=== PATIENT | female | born 1970 | race Caucasian/White ===

== ENCOUNTER 2024-07-24 10:37 | Outpatient (CLI) | payer BC, SELFPAY ==
--- NOTE | ~2024-07-24 | XR_ITS ---
EXAMINATION: XR lumbar spine min 4V DATE: 07/24/2024 11:25 INDICATION: Spondylosis without myelopathy. Low back pain radiating to the left hip. TECHNIQUE: 5 views of lumbar spine including standing views and flexion and extension views were obta ined. COMPARISON: Lumbar spine MRI 07/24/2024 FINDINGS: There is 7 degrees levocurvature of lumbar spine. Vertebral body heights are normal. There is mildly decreased disc height at L4-L5. There is no abnormal motion with flexion or extension. Ther e is multilevel facet joint osteoarthritis, severe in lower lumbar spine. IMPRESSION: 1. Mild lumbar spondylosis. Reviewed, dictated and finalized at location A. MICROARCHITECT IMPRESSION: 1. Mild lumbar spondylosis.
--- NOTE | ~2024-07-24 | MR_ITS ---
EXAMINATION: MR lumbar spine wo con DATE: 07/24/2024 11:16 INDICATION: Lumbar spondylosis without myelopathy. TECHNIQUE: Magnetic resonance imaging (MRI) of the lumbar spine was performed without intravenous con trast. Sequences included sagittal T2-weighted FSE, sagittal T2-weighted FS FSE, sagittal T1-weighted FSE, and axial T2-weighted FSE. COMPARISON: Lumbar spine radiographs 07/24/2024 FINDINGS: There is 9 degrees levocurvature of lumbar spine. Alignment is normal. There is mildly decr eased disc height at L4-L5. The distal spinal cord signal intensity is normal. The conus medullaris i s at T12. The following disc levels are specifically discussed: L1-L2: The disc does not extend beyond the endplate margin. There is mild bilateral facet joint osteo arthritis. There is no neural foraminal stenosis. There is no central canal stenosis. L2-L3: The disc is bulging. There is severe right and mild left facet joint osteoarthritis. There is mild bilateral neural foraminal stenosis. There is mild central canal stenosis. L3-L4: The disc is bulging. There is severe bilateral facet joint osteoarthritis. There is mild bilat eral neural foraminal stenosis. There is mild central canal stenosis. L4-L5: The disc is bulging and has an annular fissure. There is severe bilateral facet joint osteoart hritis. There is mild bilateral neural foraminal stenosis. There is mild central canal stenosis. L5-S1: The disc does not extend beyond the endplate margin. There is severe bilateral facet joint ost eoarthritis. There is no neural foraminal stenosis. There is no central canal stenosis. IMPRESSION: 1. Mild lumbar spondylosis. Reviewed, dictated and finalized at location A. MACHINE OPERATOR IMPRESSION: 1. Mild lumbar spondylosis.
--- NOTE | ~2024-07-24 | XR_ITS ---
EXAM: XR pelvis 1-2V DATE: 07/24/2024 11:25 HISTORY: Spondylosis without myelopathy, . COMPARISON: 10/24/2004. FINDINGS: Decreased mineralization. No fracture or dislocation. Degenerative changes in the lumbar s pine and bilateral hips. No lytic or blastic lesion. Mild degenerative change of the pubic symphysis. IMPRESSION: Mild bilateral hip osteoarthritis. Mild osteitis pubis Reviewed, dictated and finalized at location K. ING STATION ATTENDANT
== END 2024-07-24 10:38 | disposition home or self-care (01) ==
DX: M47.817 Spondylosis without myelopathy or radiculopathy, lumbosacral region (principal); M53.3 Sacrococcygeal disorders, not elsewhere classified; M79.7 Fibromyalgia; M17.0 Bilateral primary osteoarthritis of knee; M47.26 Other spondylosis with radiculopathy, lumbar region
CPT/HCPCS: 72110; 72148; 72170

== ENCOUNTER 2024-09-05 15:26 | Outpatient (CLI) | payer BC, SELFPAY ==
--- NOTE | ~2024-09-05 | MR_ITS ---
EXAMINATION: MR hip LT wo con DATE: 09/05/2024 16:09 INDICATION: Trochanteric bursitis of left hip. TECHNIQUE: Magnetic resonance imaging (MRI) of the left hip was performed without intravenous contras t. COMPARISON: Pelvis radiograph 07/24/2024 FINDINGS: Bones/cartilage: Bone alignment is normal. No fracture. The femoral head/neck morphologies are normal. The hips demons trate tiny osteophytes. Small [id number] images of left hip demonstrate normal cartilage. Labrum: There is a tear of the left acetabular labrum. Fluid: There is no hip joint effusion. There is mild bilateral trochanter bursitis. Soft tissues: The gluteus minimus tendons and left gluteus medius tendon are normal. There is mild right gluteus me dius tendinopathy. The iliopsoas tendons are normal. There is moderate tendinopathy of the hamstring origins bilaterally. There is a left inguinal hernia containing fat. There is a 5.3 cm subserosal fib roid. IMPRESSION: 1. Mild bilateral trochanter bursitis. 2. Tear of left acetabular labrum. 3. Left inguinal hernia containing fat. 4. Uterine fibroid. Reviewed, dictated and finalized at location A. CTOR OF LABORATORY OPERATIONS
== END 2024-09-05 15:27 | disposition home or self-care (01) ==
LOC: MICIMG 15:28
PROVIDERS: PCP Chiropractor
DX: M70.62 Trochanteric bursitis, left hip (principal); M53.3 Sacrococcygeal disorders, not elsewhere classified; M47.26 Other spondylosis with radiculopathy, lumbar region; M17.0 Bilateral primary osteoarthritis of knee; M47.812 Spondylosis without myelopathy or radiculopathy, cervical region; M47.817 Spondylosis without myelopathy or radiculopathy, lumbosacral region; K40.90 Unilateral inguinal hernia, without obstruction or gangrene, not specified as recurrent; D25.9 Leiomyoma of uterus, unspecified
CPT/HCPCS: 73721

== ENCOUNTER 2024-12-09 10:35 | Outpatient (CLI) | payer BC, SELFPAY ==
--- NOTE | ~2024-12-09 | MR_ITS ---
MRI of the cervical spine Clinical History: Radiculopathy Technique: Axial T2-weighted and gradient images, and sagittal T1-weighted, T2-weighted, and STIR bruno ges were acquired. Findings: No fracture or subluxation of the cervical spine. Vertebral bodies maintain normal height a nd alignment. No bone marrow signal abnormality seen. At C2-C3, there is no disc bulge or herniation. No spinal canal stenosis, cord compression, or neural foraminal narrowing. At C3-C4, there is no disc bulge or herniation. There is minimal facet joint degenerative change. No spinal canal stenosis, cord compression, or neural foraminal narrowing. At C4-C5, there is minimal degenerative spurring and minimal disc bulge. There is mild facet hypertro phy. No spinal canal stenosis, cord compression, or definite neural foraminal narrowing. At C5-C6, there is left foraminal osteophyte complex, with left neural foraminal narrowing. Right ginna ral foramen preserved. No canal stenosis or cord compression. At C6-C7, there is minimal osteophyte complex at the right foraminal region without distinct neural f oraminal narrowing. Left neural foramen also preserved. No canal stenosis or cord compression. No abnormal signal seen in the spinal cord. Paravertebral soft tissues are unremarkable. Impression: Left foraminal disc osteophyte complex at C5-C6 with left neural foraminal narrowing at this level. Reviewed, dictated and finalized at [facility]. Impression: Left foraminal disc osteophyte complex at C5-C6 with left neural foraminal narr owing at this level.
== END 2024-12-09 10:36 | disposition home or self-care (01) ==
PROVIDERS: PCP Chiropractor; Visit Provider Chiropractor
DX: M54.12 Radiculopathy, cervical region (principal)
CPT/HCPCS: 72141

== ENCOUNTER 2025-03-27 14:31 | Outpatient (CLI) | payer BC, SELFPAY ==
--- NOTE | ~2025-03-27 | MR_ITS ---
EXAMINATION: MR thoracic spine wo con DATE: 03/27/2025 15:18 INDICATION: Thoracic spondylosis with radiculopathy. Back pain. TECHNIQUE: Magnetic resonance imaging (MRI) of the thoracic spine was performed without intravenous contrast. COMPARISON: None FINDINGS: There is 8 degrees dextrocurvature of thoracic spine. There is mild chronic anterior wedging of T5-T8 vertebral bodies. There is mildly decreased disc height at multiple levels. There is moderately decreased disc height at T5- T6 and T6-T7. There is multilevel severe facet joint osteoarthritis. At T6-T7, the disc is bulging with mild central canal stenosis. At T7-T8, the disc is bulging with mild central canal stenosis. At T9-T10, the disc is bulging with mild central canal stenosis. There is mild neural foraminal stenosis at multiple levels on either side. The spinal cord signal intensity is normal. The conus medullaris is at T12. IMPRESSION: 1. Mild thoracic spondylosis. Reviewed, dictated and finalized at location E.
== END 2025-03-27 14:32 | disposition home or self-care (01) ==
LOC: MICIMG 14:32
PROVIDERS: PCP Chiropractor; Visit Provider Chiropractor
DX: M47.24 Other spondylosis with radiculopathy, thoracic region (principal)
CPT/HCPCS: 72146